=== PATIENT | male | born 1990 | race African-American/Black ===

== ENCOUNTER 2019-04-17 22:30 | Emergency (ER) | payer SELFPAY ==
[~2019-04-17] VITALS: Ht 182.9 cm; Wt 163.3 kg
[2019-04-17 22:45] VITALS: BP 123/73
--- NOTE | 2019-04-17 22:45 | NUR ---
ED Nurse Note: Patient walked into ED c/o cough for 6 months accomapnied by left flank pain. patient is alert and oriented x4, ambulatory with a steady gait, VSS
[2019-04-17] MEDS ORDERED: Albuterol ud Inhalation HHN ONE (23:00)
--- NOTE | 2019-04-17 23:00 | Emergency Room Report ---
History of Present Illness General Chief Complaint: Upper Respiratory Illness Source: Patient Present Illness HPI Is a 29-year-old male with no past medical history. He presents with complaint of cough. Also with right-sided pain. Onset for the last 8 months. Intermittently. Worse when he is around secondhand smoke. No fever chills. Coughing is nonproductive nature. Now with headache and right sided pain. Woke up tonight with it to do so he decided to come in and seen. No history of wheezing. No history of asthma. Not a smoker. Coughing is nonproductive nature. Allergies: Coded Allergies: No Known Allergies (Unverified , 04/17/19) Patient History Past Medical History: see triage record, old chart reviewed Past Surgical History: none Pertinent Family History: none Social History: Denies: smoking Immunizations: other Reviewed Nursing Documentation: PMH: Agreed; PSxH: Agreed Nursing Documentation-PM Past Medical History: No Stated History Review of Systems Eye: Denies: eye pain, blurred vision ENT: Denies: ear pain, nose congestion, throat swelling Respiratory: Reports: cough; Denies: shortness of breath Cardiovascular: Denies: chest pain, palpitations Gastrointestinal: Denies: abdominal pain, diarrhea, nausea, vomiting Musculoskeletal: Denies: back pain, joint pain Skin: Denies: rash Neurological: Denies: headache, numbness Endocrine: Denies: increased thirst, increased urine Hematologic/Lymphatic: Denies: easy bruising All Other Systems: negative except mentioned in HPI Physical Exam Vital Signs Date Time Temp Pulse Resp B/P (MAP) Pulse Ox O2 Delivery O2 Flow Rate FiO2 04/17/19 22:42 98.2 95 18 123/73 (90) 89 Room Air Sp02 EP Interpretation: reviewed, normal General Appearance: well appearing, no apparent distress, alert Head: normocephalic, atraumatic Eyes: bilateral eye PERRL, bilateral eye EOMI ENT: hearing grossly normal, normal pharynx Neck: full range of motion, supple, no meningismus Respiratory: chest non-tender, expiration - Slight expiratory wheezing Cardiovascular #1: regular rate, rhythm, no murmur Gastrointestinal: normal bowel sounds, non tender, no mass, no organomegaly, no bruit, non-distended Musculoskeletal: back normal, gait/station normal, normal range of motion Psychiatric: mood/affect normal Medical Decision Making Diagnostic Impression: Primary Impression: Asthmatic bronchitis with acute exacerbation Qualified Codes: J45.21 - Mild intermittent asthma with (acute) exacerbation ER Course Patient presents with cough for 8 months. Chest x-ray is unremarkable. This may be a cough variant asthma. No evidence of ACS, PE, dissection. His pain is probably secondary to muscle strain from coughing. No evidence of an acute abdomen. Will discharge home. Chest X-Ray Diagnostic Results Chest X-Ray Diagnostic Results : Chest X-Ray Ordered: Yes Indication: Shortness of Breath EP Interpretation: Yes Interpretation: no consolidation, no effusion, no pneumothorax, no acute cardiopulmonary disease Impression: No acute disease Electronically Signed by: Stu Hussein MD Last Vital Signs Date Time Temp Pulse Resp B/P (MAP) Pulse Ox O2 Delivery O2 Flow Rate FiO2 04/17/19 22:42 98.2 95 18 123/73 (90) 89 Room Air Status: improved Disposition: HOME, SELF-CARE Condition: Stable Scripts Azithromycin* (ZITHROMAX*) 250 Mg Tablet 250 MG ORAL DAILY, #6 TAB 0 Refills Take two tables once daily for 1 day, then one tablet once daily for 4 days. Prov: Stu Hussein MD 04/17/19 Albuterol Sulfate* (ALBUTEROL SULFATE MDI*) 8.5 Gm Hfa.aer.ad 2 PUFF INH Q4H PRN for cough/wheezing, #1 EA 0 Refills Prov: Stu Hussein MD 04/17/19 Additional Instructions: Follow-up with your doctor in 7 days. Return if worse. Stu Hussein MD Apr 17, 2019 23:00
[2019-04-17] MEDS ORDERED: ZITHROMAX250 MG ORAL (23:36)
[2019-04-17] MEDS ORDERED: ALBUTEROL SULF8.5 GM INH (23:36)
[2019-04-17] MEDS ORDERED: IBUPROFEN600 MG ORAL (23:43)
[2019-04-17 23:45] VITALS: BP 125/70
--- NOTE | 2019-04-18 10:21 | Diagnostic Imaging Report ---
Indication: Shortness of breath Technique: One view of the chest Comparison: none Findings: Lungs and pleural spaces are clear. Heart size is upper limits normal Impression: No acute process
== END 2019-04-17 23:45 | disposition home or self-care (01) ==
LOC: EMR 23:21
DX: J45.21 Mild intermittent asthma with (acute) exacerbation (principal)
CPT/HCPCS: 71045; 94640; 94664; 99284

== ENCOUNTER 2019-06-05 01:31 | Emergency (ER) | payer SELFPAY ==
[~2019-06-05] VITALS: Ht 180.3 cm; Wt 136.1 kg
[~2019-06-05 01:31] MED LIST: ALBUTEROL SULF8.5 GM INH; IBUPROFEN600 MG ORAL; ZITHROMAX250 MG ORAL
[2019-06-05 01:53] VITALS: BP 138/90
--- NOTE | 2019-06-05 01:55 | NUR ---
ED Nurse Note: Patient walked into ED c/o earache that has been an ongoing issue for the past 3 days, pain is owrsened with chewing, patient presents with a temperature of 100.8, denies any tinnitus in bilateral ears, states that the left one is worse. patient is alert and oriented x4. will wait for further orders
[2019-06-05] MEDS ORDERED: OFLOXACIN5 ML BOTH EARS (02:18)
[2019-06-05] MEDS ORDERED: IBUPROFEN600 MG ORAL (02:18)
[2019-06-05] MEDS ORDERED: PROMETHAZINE-D118 ML ORAL (02:26)
[2019-06-05 02:28] VITALS: BP 138/90
--- NOTE | 2019-06-05 02:28 | NUR ---
ER Nurse Note: Pt seen, treated, medically cleared for discharge by ERMD. Discharge instuctions and prescriptions given with repeat verbalization by pt. Emphasized to follow up with primay care provider; take whole course of medication. Explained each medication. All orders completed per ERMD orders. Pt a&ox4, VSS, no signs of distress. ID band removed. All questions answered per pt's questions. Pt left with all belongings, left with own transportation.
--- NOTE | 2019-06-05 05:06 | Emergency Room Report ---
History of Present Illness General Chief Complaint: Earache Source: Patient Present Illness HPI 29-year-old male presents ED for evaluation. Complaining of bilateral ear pain , cough. Started 3 days ago. Temp 100.8 in triage. Cough is dry. Denies fevers or chills pain is dull, 5 out of 10, nonradiating. Denies sick contacts or recent travel. No other aggravating relieving factors. Denies any other associated symptoms Allergies: Coded Allergies: No Known Allergies (Unverified , 04/17/19) Patient History Past Medical History: none Past Surgical History: none Pertinent Family History: none Social History: Denies: smoking, alcohol use, drug use Immunizations: UTD Reviewed Nursing Documentation: PMH: Agreed; PSxH: Agreed Nursing Documentation-PMH Past Medical History: No Stated History Review of Systems All Other Systems: negative except mentioned in HPI Physical Exam Vital Signs Date Time Temp Pulse Resp B/P (MAP) Pulse Ox O2 Delivery O2 Flow Rate FiO2 06/05/19 01:48 100.8 94 18 138/90 (106) 93 Room Air Sp02 EP Interpretation: reviewed, normal General Appearance: no apparent distress, alert, GCS 15, non-toxic Head: normocephalic Eyes: bilateral eye normal inspection, bilateral eye PERRL ENT: hearing grossly normal, normal pharynx, no angioedema, normal voice, other - bilateral ear canal swollen. unable to visualize TM Neck: full range of motion, supple, no meningismus, supple/symm/no masses Respiratory: chest non-tender, lungs clear, normal breath sounds, speaking full sentences Cardiovascular #1: normal inspection Gastrointestinal: normal inspection Rectal: deferred Genitourinary: no CVA tenderness Musculoskeletal: normal inspection Neurologic: alert, oriented x3, responsive, motor strength/tone normal, sensory intact, speech normal Psychiatric: normal inspection Skin: no rash Lymphatic: normal inspection Medical Decision Making Diagnostic Impression: Primary Impression: Otitis externa Qualified Codes: H60.503 - Unspecified acute noninfective otitis externa, bilateral Additional Impression: Acute bronchitis Qualified Codes: J20.9 - Acute bronchitis, unspecified ER Course Hospital Course 29-year-old M presents to ED with bilateral ear pain. cough. fever Differential diagnoses include: TM perforation, otitis externa, otitis media Clinical course Patient placed on stretcher. After initial history, physical exam reveals an obese male in no acute distress. Bilateral ear canals swollen and erythematous. Unable to visualize TM. Consistent with otitis externa No pharyngeal erythema. Lungs clear. Likely bronchitis. Motrin for fever in ED. Discussed findings with patient. Will discharge to home with prescriptions. Safe for discharge with close outpatient follow-up. Does not have a PMD. Will provide referrals Diagnosis - otitis externa, bronchitis Stable and discharged to home with Rx ofloxacin otic, promethazine/DM, motrin. Followup with PMD. Return to ED if symptoms recur or worsen Last Vital Signs Date Time Temp Pulse Resp B/P (MAP) Pulse Ox O2 Delivery O2 Flow Rate FiO2 06/05/19 02:28 100.8 06/05/19 02:28 90 18 138/90 95 Room Air Status: improved Disposition: HOME, SELF-CARE Condition: Stable Scripts D-Methorphan Hb/Prometh Hcl* (PROMETHAZINE-DM SYRUP*) 118 Ml Syrup 5 ML ORAL Q6H PRN for For Cough, #118 ML 0 Refills Prov: Marty Chen MD 06/05/19 Ibuprofen* (MOTRIN*) 600 Mg Tablet 600 MG ORAL Q8H PRN for For Pain, #30 TAB 0 Refills Prov: Marty Chen MD 06/05/19 Ofloxacin (OFLOXACIN) 5 Ml Drops 10 DROP BOTH EARS DAILY for 7 Days, ML Prov: Marty Chen MD 06/05/19 Referrals: NOT CHOSEN IPA/,REFERRING (PCP) [facility] Patient Instructions: Otitis Externa, [id number] Marty Chen MD Jun 05, 2019 05:06
== END 2019-06-05 02:28 | disposition home or self-care (01) ==
LOC: EMR 02:08
DX: J20.9 Acute bronchitis, unspecified (principal); H60.503 Unspecified acute noninfective otitis externa, bilateral
CPT/HCPCS: 99282